=== PATIENT | male | born 1945 | race Caucasian/White ===

== ENCOUNTER 2017-09-21 13:40 | Observation (INO) | payer MEDICARE, BC ==
[~2017-09-21] VITALS: Ht 180.3 cm; Wt 85.5 kg
[2017-09-21] VITALS (9 sets, daily range): BP systolic 94–146; BP diastolic 52–76; PULSE 93–108; TEMP 98.1
[2017-09-21] MEDS ORDERED: ASPIRIN 32325 MG/TAB PO (14:34)
[2017-09-21] MEDS ORDERED: FLOMAX 0.40.4 MG/CAP PO (14:35)
[2017-09-21] MEDS ORDERED: NORVASC 10MG10 MG PO (14:35)
[2017-09-21] MEDS ORDERED: CARDURA 8MG TAB8 MG PO (14:35)
[2017-09-21] MEDS ORDERED: CEPHALEXIN500 M1 PO (14:36)
[2017-09-22] VITALS: BP 99/58; PULSE 98; TEMP 98.4
[2017-09-22 04:00] VITALS: BP 113/66; PULSE 76; TEMP 98.1
[2017-09-22 07:24] VITALS: BP 106/53; PULSE 82; TEMP 98.3
[2017-09-22 11:27] VITALS: BP 115/43; PULSE 104; TEMP 98.4
[2017-09-22 15:25] VITALS: BP 132/68; PULSE 81; TEMP 98.3
[2017-09-23] VITALS: BP 112/63; PULSE 72; TEMP 98.2
[2017-09-23 04:00] VITALS: BP 101/62; PULSE 65; TEMP 98.3
[2017-09-23 08:48] VITALS: BP 124/64; PULSE 79; TEMP 98.5
== END 2017-09-23 11:31 | disposition home or self-care (01) ==
LOC: SDCO 13:40 → SURG 19:33 → SDCO 09-22 15:00 → SURG 09-22 15:08
DX: N40.1 Benign prostatic hyperplasia with lower urinary tract symptoms (principal); N13.8 Other obstructive and reflux uropathy; R33.8 Other retention of urine; N21.0 Calculus in bladder; I10 Essential (primary) hypertension; Z79.899 Other long term (current) drug therapy; Z87.891 Personal history of nicotine dependence
CPT/HCPCS: OP; J0690; J1100; J1885; J2405; J3010; J3480; J7120

== ENCOUNTER 2020-09-24 11:48 | Day surgery (SDC) | payer MEDICARE, BC ==
[2020-09-24] VITALS (10 sets, daily range): BP systolic 108–144; BP diastolic 56–99; PULSE 65–94; TEMP 97.7–98.1
[~2020-09-24] VITALS: Ht 180.3 cm; Wt 83.5 kg
[~2020-09-24 11:48] MED LIST: ASPIRIN 32325 MG/TAB PO; CARDURA 8MG TAB8 MG PO; CEPHALEXIN500 M1 PO; FLOMAX 0.40.4 MG/CAP PO; NORVASC 10MG10 MG PO
[2020-09-24] MEDS ORDERED: FLOMAX 0.40.4 MG/CAP (12:37)
[2020-09-24] MEDS ORDERED: CIPRO 500MG TA500 MG PO (13:36)
--- NOTE | 2020-09-24 18:30 | NUR ---
Patient got to the floor about 1740. He is alert and oriented but a little forgetful. His urine is pink to light red. No clots noted. CBI flowing at a moderate rate. Patient denies pain or nausea. His family is here. Explained how to order food. Oriented patient to room. Explianed the plan for the this evening. No other changes at this time. Call light within reach.
--- NOTE | 2020-09-24 20:00 | NUR ---
Pt. sitting up in bed at this time. Pt. is A&OX3, assessment complete. INT to lt. forearm patent. Stone catheter with CBI, urine is red-tinged at this time. Pt. denies pain or other needs, call light within reach.
[2020-09-25 00:12] VITALS: BP 106/55; PULSE 73; TEMP 98.1
[2020-09-25 03:43] VITALS: BP 101/56; PULSE 78; TEMP 97.8
[2020-09-25 07:19] VITALS: BP 108/61; PULSE 75; TEMP 98
--- NOTE | 2020-09-25 08:59 | NUR ---
EVAN met with the patient and his daughter, Frances ([id number]#[phone]), to discuss discharge plan. The patient lives alone in [place]. Frances lives a block away from him. He reports independence with ADLs and does not have any DME. 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 The patient's PCP is Dr. Bridget Laguna and he receives his medications from [facility]. He reports no difficulties obtaining his meds. The patient does not have a DPOA-HC in EMR, but he believes that he does have one completed and that it designates Frances and his son, Tono. The patient plans to return home upon discharge. No additional needs at this time. *Discharge plan: home*
--- NOTE | 2020-09-25 10:18 | NUR ---
Initial visit; Patient is doing well. [employer] Farmer offered God's blessings.
--- NOTE | 2020-09-25 11:08 | NUR ---
Patient alert and oriented, answers questions appropriately. See assessment. Stone in catheter in place to dependent drainage. CBI decreased to slow rate. Urine cunningham, no clots noted. No c/o abdominal or flank pain or pressure. Stone catheter cares completed. NO c/o at this time.
[2020-09-25 11:20] VITALS: BP 113/62; PULSE 78; TEMP 98.7
[2020-09-25 16:24] VITALS: BP 128/63; PULSE 73; TEMP 98.7
[2020-09-25 19:47] VITALS: BP 129/50; PULSE 88; TEMP 98.3
--- NOTE | 2020-09-25 22:54 | NUR ---
has been great. He rated his pain 0/10. VSS. urine output is still reddish.Will continue to monitor.
[2020-09-26 00:13] VITALS: BP 110/67; PULSE 72; TEMP 98.4
[2020-09-26 04:40] VITALS: BP 112/64; PULSE 67; TEMP 98.2
[2020-09-26 09:00] VITALS: BP 119/54; PULSE 78; TEMP 98.1
--- NOTE | 2020-09-26 09:13 | NUR ---
Stone catheter removed per Drs order. Six bottle routine intiated.
--- NOTE | 2020-09-26 10:42 | NUR ---
Patient alert and oriented, answers questions appropriately. See assessment. Abdomen soft, non tender, non distended. Bowel sounds hyperactive x4 quads. +Flatus. +Bowel movement. LLE incision with aquacel CDI. Pulses palpable to LLE, no numbness or tingling. AROM to LLE. BRIDGETTE hose on BLE. FWB BLE. DBL lumen PICC in place to RUE, flushes well, blood return noted. Patient had numerous concerns this morning, allowed to voice each concern. Post op exercises reviewed with patient. No c/o at this time.
--- NOTE | 2020-09-26 11:15 | NUR ---
Patient alert and oriented, answers questions appropriately. See assessment. Stone catheter removed this morning. Continues with six bottle routine. No c/o urinary burning, hesitancy or frequency. No other c/o at this time.
[2020-09-26 12:07] VITALS: BP 108/60; PULSE 90; TEMP 98
--- NOTE | 2020-09-26 14:26 | NUR ---
Discharge instructions reviewed with patient and daughter, verbalized understanding. Six bottle routine completed, urine became progressively clearer. Discharged via wheelchair to auto/home with daughter at 1420.
== END 2020-09-26 14:20 | disposition home or self-care (01) ==
LOC: SDCO 11:48 → SURG 11:48 → SDCO 14:30 → SURG 17:41 → SDCO 09-26 14:20
DX: N21.0 Calculus in bladder (principal); N40.1 Benign prostatic hyperplasia with lower urinary tract symptoms; R33.8 Other retention of urine; I10 Essential (primary) hypertension; J84.10 Pulmonary fibrosis, unspecified; K51.90 Ulcerative colitis, unspecified, without complications; Z90.49 Acquired absence of other specified parts of digestive tract; Z79.899 Other long term (current) drug therapy; Z79.891 Long term (current) use of opiate analgesic; Z79.82 Long term (current) use of aspirin
CPT/HCPCS: OP; J0690; J1100; J1885; J2405; J2704; J3010; J7120